=== PATIENT | male | born 1965 | race Hispanic/Latino ===

== ENCOUNTER 2017-01-26 13:40 | Emergency (ER) | payer OTHER ==
[~2017-01-26] VITALS: Ht 167.6 cm; Wt 73.0 kg
[~2017-01-26 13:40] MED LIST: TEKTURNA300 M1 PO
[2017-01-26 14:07] LABS: ABSOLUTE BASOPHIL COUNT 0 /CUMM (0.0-0.2); ABSOLUTE EOSINOPHIL COUNT 0.1 /CUMM (0.0-0.7); ABSOLUTE GRANULOCYTE CT 4.4 /CUMM (1.4-6.5); ABSOLUTE LYMPH COUNT 3.3 /CUMM (1.2-3.4); ABSOLUTE MONOCYTE COUNT 0.4 /CUMM (0.10-0.60); BASOPHIL % 0.5 % (0.0-2.0); EOSINOPHIL % 0.8 % (0-5); GRANULOCYTE % 53.5 % (42.2-75.2); HEMATOCRIT 47.1 % (42-52); MEAN CORPUSCULAR HGB 26.5 PG (27.0-31.0); MEAN CORPUSCULAR HGB CONC 32.5 G/DL (33.0-37.0); MEAN CORPUSCULAR VOLUME 81.6 FL (80.0-94.0); MEAN PLATELET VOLUME 8.4 FL (7.4-10.4); PLATELET COUNT 231 /CUMM (130-400); RBC DISTRIBUTION WIDTH 15.5 % (11.5-14.5); RED BLOOD CELL CT 5.77 /CUMM (4.70-6.10); WHITE BLOOD CELL COUNT 8.3 /CUMM (4.8-10.8)
[2017-01-26] MEDS ORDERED: FISH OIL 1,2001 EACH PO (15:34)
[2017-01-26] MEDS ORDERED: ADVIL200 M2 PO (15:35)
--- NOTE | 2017-01-26 16:19 | ED GENERAL ADULT ---
History of Present Illness General Chief Complaint: Chest Pain Stated Complaint: CP, SOB Source: patient Exam Limitations: no limitations Vital Signs & Intake/Output Vital Signs & Intake/Output Vital Signs Date Time Temp Pulse Resp B/P B/P Pulse O2 O2 Flow FiO2 Mean Ox Delivery Rate 01/26 1737 97.8 64 18 166/103 99 01/26 1545 98 Room Air 01/26 1533 74 18 187/103 97 01/26 1353 97.9 76 16 138/92 97 Room Air Allergies Coded Allergies: No Known Allergies (07/17/16) Reconcile Medications Aliskiren Hemifumarate (Tekturna) 300 MG TABLET 1 TAB PO DAILY HIGH BLOOD PRESSURE (Reported) Fish Oil/Dha/Epa (Fish Oil 1,200 MG Fish Oil) (Unknown Strength) CAPSULE ( Unknown Dose) PO DAILY SUPPLEMENT (Reported) Ibuprofen (Advil) 200 MG TABLET 2 TAB PO ONCE PAIN (Reported) Triage Note: PT STATES SOB AND CHEST PAIN UNDER LEFT BREAST SINCE TODAY. PT STATES HE WAS IN A MEETING AND FELT LIGHT HEADED AND DIZZY. PT STATES HE DOES HAVE HTN AND DOES TAKE MEDS FOR THIS. PT DENIES NAUSEA. Triage Nurses Notes Reviewed? yes HPI: 51-year-old male with a history of hypertension presenting with intermittent chest pain since yesterday. Reports intermittent episodes of sharp nonradiating left-sided chest pain that will last a few seconds and then self resolve. Reports that he has experienced this in the past but never sought medical attention. Today decided to seek medical attention as one episode was associated with some lightheadedness. Denies diaphoresis, nausea, vomiting, shortness of breath, dizziness, pain radiating to the arm/neck/jaw/back. (JIM CEDENO PA-C) Past History Travel History Traveled to [place] past 21 day No Medical History Any Pertinent Medical History? see below for history Cardiovascular: hypertension Surgical History Surgical History: none Psychosocial History What is your primary language Fijian Tobacco Use: Never used ETOH Use: occasional use Illicit Drug Use: denies illicit drug use Family History Hx Contributory? No (JIM CEDENO PA-C) Review of Systems Review of Systems Constitutional: Denies: chills, diaphoresis, fever, malaise, weakness. Respiratory: Denies: cough, hemoptysis, short of breath, sputum production, wheezing. Cardiovascular: Reports: chest pain. Denies: edema, palpitations, peripheral edema, syncope. GI: Denies: abdominal pain, nausea, vomiting. Musculoskeletal: Reports: no symptoms. Skin: Reports: no symptoms. Neurological/Psychological: Reports: other (light headedness). Denies: headache, numbness, paresthesia, tingling, tremors, weakness. (PAO MCLEOD,JIM) Physical Exam Physical Exam General Appearance: well developed/nourished, no apparent distress Head: atraumatic Respiratory: normal breath sounds, chest non-tender, lungs clear Cardiovascular: regular rate/rhythm, normal peripheral pulses Extremities: no edema Neurologic/Psych: no motor/sensory deficits, alert, oriented x 3 Skin: intact, normal color, warm/dry Core Measures ACS in differential dx? Yes CVA/TIA Diagnosis: No Severe Sepsis Present: No Septic Shock Present: No (PAO MCLEOD,JIM) Progress Differential Diagnoses I considered the following diagnoses in my evaluation of the patient: [VT versus angina versus prinzmetal versus pneumonia versus pleural effusion versus pleurisy versus muscle strain versus muscle spasm versus GERD] Plan of Care: Orders Procedure Date/time Status TROPONIN LEVEL 01/26 1700 Complete Add-on Test (ER Only) 01/26 1557 Active PHOSPHORUS 01/26 1401 Complete MAGNESIUM 01/26 1401 Complete TROPONIN LEVEL 01/26 1354 Complete COMPREHENSIVE METABOLIC PANEL 01/26 1354 Complete CBC WITHOUT DIFFERENTIAL 01/26 1354 Complete EKG 01/26 1342 Active Laboratory Tests 01/26/17 1722: Troponin I < 0.01 01/26/17 1401: Anion Gap 10, Estimated GFR > 60, BUN/Creatinine Ratio 20.0, Glucose 138 H, Calcium 8.8, Phosphorus 3.0, Magnesium 1.9, Total Bilirubin 0.4, AST 25, ALT 28, Alkaline Phosphatase 54, Troponin I < 0.01, Total Protein 7.1, Albumin 3.9, Globulin 3.2, Albumin/Globulin Ratio 1.2, CBC w Diff NO MAN DIFF REQ, RBC 5.77, MCV 81.6, MCH 26.5 L, RDW 15.5 H, MPV 8.4, Gran % 53.5, Lymphocytes % 40.1, Monocytes % 5.1, Eosinophils % 0.8, Basophils % 0.5, Absolute Granulocytes 4.4, Absolute Lymphocytes 3.3, Absolute Monocytes 0.4, Absolute Eosinophils 0.1, Absolute Basophils 0, PUBS MCHC 32.5 L EKG with normal sinus rhythm. Labs unremarkable including negative troponin 2. Chest x-ray unremarkable. Patient has remained asymptomatic throughout ED visit. Will follow up with primary care provider for reevaluation. (JIM CEDENO PA-C) Initial ED EKG: NSR, Rate 78 Sinus Rhythm Left axis deviation No ST segment of T wave changes (JIM CEDENO PA-C) Departure Departure Disposition: HOME OR SELF CARE Condition: Stable Clinical Impression Primary Impression: Chest pain Referrals: LI RIVERA MD (PCP/Family) Additional Instructions: Use ibuprofen as needed for pain. Follow-up with her primary care provider for reevaluation in one to 2 days. Return to the ED for any new or worsening symptoms. Departure Forms: Customer Survey General Discharge Information (JIM CEDENO PA-C) PA/SERVICE ENGINE REPAIRER Co-Sign Statement Statement: ED Attending supervision documentation- [] I saw and evaluated the patient. I have also reviewed all the pertinent lab results and diagnostic results. I agree with the findings and the plan of care as documented in the PA's/SERVICE ENGINE REPAIRER's documentation. [X] I have reviewed the ED Record and agree with the PA's/SERVICE ENGINE REPAIRER's documentation. [] Additions or exceptions (if any) to the PAs/SERVICE ENGINE REPAIRER's note and plan are summarized below: [] (MONCHO CRUZ DO) Critical Care Note Critical Care Note Critical Care Time: non-applicable (JIM CEDENO PA-C)
--- NOTE | 2017-01-26 16:42 | RADIOLOGY REPORT ---
EXAMINATION: XR CHEST CLINICAL INFORMATION: Intermittent left-sided chest pain. COMPARISON: Chest 07/17/2016. TECHNIQUE: 2 views of the chest were obtained. FINDINGS: Both lungs are fairly well-expanded and clear. The heart size and pulmonary vascularity is normal. No gross bony abnormality seen. IMPRESSION: Unremarkable chest exam.
[2017-01-26 17:37] VITALS: BP 166/103
== END 2017-01-26 18:37 ==
LOC: ERH 13:40
PROVIDERS: Emergency Medicine
DX: R07.9 Chest pain, unspecified (principal)
CPT/HCPCS: 93005; 93010

== ENCOUNTER 2017-02-21 02:21 | Emergency (ER) | payer OTHER ==
[~2017-02-21] VITALS: Ht 170.2 cm; Wt 72.6 kg
[~2017-02-21 02:21] MED LIST changes: +ADVIL200 M2 PO; +FISH OIL 1,2001 EACH PO
[2017-02-21 02:35] VITALS: BP 110/64
--- NOTE | 2017-02-21 02:48 | ED UPPER/LOWER EXTREMITY COMPL ---
History of Present Illness General Chief Complaint: General Adult Stated Complaint: "PER PT RT ARM BANDAGES NEEDS TO BE RE WRAPED" Source: patient Exam Limitations: no limitations Vital Signs & Intake/Output Vital Signs & Intake/Output Vital Signs Date Time Temp Pulse Resp B/P B/P Pulse O2 O2 Flow FiO2 Mean Ox Delivery Rate 02/21 0244 Room Air 02/21 0235 97.3 97 16 110/64 95 Room Air Allergies Coded Allergies: No Known Allergies (07/17/16) Reconcile Medications Aliskiren Hemifumarate (Tekturna) 300 MG TABLET 1 TAB PO DAILY HIGH BLOOD PRESSURE (Reported) Fish Oil/Dha/Epa (Fish Oil 1,200 MG Fish Oil) (Unknown Strength) CAPSULE ( Unknown Dose) PO DAILY SUPPLEMENT (Reported) Ibuprofen (Advil) 200 MG TABLET 2 TAB PO ONCE PAIN (Reported) Triage Note: 51yo MALE TO TRIAGE REQUESTING TO HAVE HIS "R ARM REDRESSED." STATES HE HAD TENDON REPAIR ON THURSDAY, TONITE WOUND "GOT ITCHY" SO PT REMOVED DRSG. SUTURE LINE INTACT W/STERISTRIPS COVERING. NO DRAINAGE OR REDNESS PRESENT. Triage Nurses Notes Reviewed? yes HPI: Patient presents for evaluation of itching in the area of tendon on Thursday. Patient states the arm felt very itchy so he removed the splint and dressing. He now wishes to have the splint replaced. Past History Travel History Traveled to [place] past 21 day No Medical History Any Pertinent Medical History? see below for history Cardiovascular: hypertension Surgical History Surgical History: none Psychosocial History What is your primary language Uzbek Tobacco Use: Never used Family History Hx Contributory? No Review of Systems Review of Systems Constitutional: Reports: no symptoms. EENTM: Reports: no symptoms. Respiratory: Reports: no symptoms. Cardiovascular: Reports: no symptoms. Gastrointestinal/Abdominal: Reports: no symptoms. Genitourinary: Reports: no symptoms. Musculoskeletal: Reports: see HPI. Skin: Reports: no symptoms. Neurological/Psychological: Reports: no symptoms. Hematologic/Endocrine: Reports: no symptoms. Immunological: Reports: no symptoms. All Other Systems: Reviewed and Negative Physical Exam Physical Exam General Appearance: see below Comments: Gen.: Well-nourished, well-developed, no acute respiratory distress. Head: Normocephalic, atraumatic. Eyes: Normal inspection bilaterally Ears: Normal inspection bilaterally Nose: Normal inspection, nasal cannula in place Throat/mouth : Moist mucosa Neck: Supple, full range of motion, no goiter Heart: Regular rate and rhythm Lungs: Quiet respirations Back: Normal range of motion Extremities: Right forearm: Healing surgical wound with no signs of infection. The right hand is neurovascularly intact. Neurologic: Cranial nerves grossly intact, speech is clear Skin: warm and dry Psychiatric: Calm, cooperative, no apparent delusions or hallucinations Progress Differential Diagnosis: circulatory compromise, compartment syndrome, postoperative infection Plan of Care: Continue current care Departure Departure Disposition: HOME OR SELF CARE Condition: Stable Clinical Impression Primary Impression: Postoperative pain of extremity Referrals: LI RIVERA MD (PCP/Family) Additional Instructions: Continue your current care and follow-up as previously discussed with your surgeon. Return if any concerns or sudden worsening. Thank you for choosing the [facility] Emergency Department for your care. It was a pleasure to serve you today. Johann Mccray M.D. [facility] Departure Forms: Customer Survey General Discharge Information
== END 2017-02-21 02:57 ==
LOC: ERH 02:21
DX: G89.18 Other acute postprocedural pain (principal)

== ENCOUNTER 2018-02-03 10:15 | Emergency (ER) | payer OTHER ==
[~2018-02-03 10:15] MED LIST changes: +HYDROCHLOROTHIA25 M1 PO
--- NOTE | 2018-02-03 10:35 | ED DYSPNEA/ASTHMA COMPLAINT ---
History of Present Illness General Chief Complaint: Dyspnea (COPD, CHF, Other) Stated Complaint: DYSPNEA Source: patient Exam Limitations: no limitations Vital Signs & Intake/Output Vital Signs & Intake/Output Vital Signs Date Time Temp Pulse Resp B/P B/P Pulse O2 O2 Flow FiO2 Mean Ox Delivery Rate 02/03 1651 98.2 80 16 130/71 96 Room Air 02/03 1532 97.7 63 18 128/64 95 Room Air 02/03 1144 97.7 72 20 143/72 98 02/03 1132 97 Room Air 02/03 1126 99 02/03 1023 74 24 98 Room Air Allergies Coded Allergies: No Known Allergies (07/17/16) Reconcile Medications Amlodipine Besylate 10 MG TABLET 1 TAB PO DAILY HEART (Reported) Triage Note: 52M TO ED WITH DIFF BREATHING SINCE LAST NIGHT, WORSENING. DENIES COUGH. LUNG SOUNDS CLEAR TO ALL FOSTER. O2 SAT 99% RA. DENIES ASSOCIATED CP/PALPITATIONS OR DIAPHORESIS. - SMOKER. -N/V. TO EKG ALCOVE ON ARRIVAL AND THEN TO XRAY Triage Nurses Notes Reviewed? yes Onset: Abrupt Duration: day(s): (1-2), constant, continues in ED, getting worse Timing: remote history Severity: mild, moderate Activities at Onset: none Prior Episodes/Possible Cause: occasional episodes Associated Symptoms: cough HPI: 52-year-old male history of hypertension presents for evaluation of headache and shortness of breath. Patient states that symptoms started this morning several hours prior to presentation. He reports a global headache described as pressure with associated blurred vision. He also reports shortness of breath that started this morning while he was at rest. Does not get worse on exertion no chest pain. He states he feels like he cannot get a full breath in. He states he did have similar symptoms about 7 months ago was evaluated here without a determined etiology. He denies any hemoptysis lower extremity edema fever neck pain nausea vomiting. He reports he has a history of similar headaches which usually takes Advil for but states this is different and more intense. He denies head trauma. States that it is a 7 out of 10. (Austen STEVEN,Jonatan) Past History Travel History Traveled to [place] past 21 day No Medical History Any Pertinent Medical History? see below for history Cardiovascular: hypertension Surgical History Surgical History: LEFT HAND SURGERY Psychosocial History What is your primary language Serbian Tobacco Use: Current Daily Use Daily Tobacco Use Amount/Type: => 5 Cigarettes daily Family History Hx Contributory? No (Jonatan Macario) Review of Systems Review of Systems Constitutional: Reports: no symptoms. EENTM: Reports: no symptoms. Respiratory: Reports: see HPI, short of breath. Cardiovascular: Reports: no symptoms. GI: Reports: no symptoms. Genitourinary: Reports: no symptoms. Musculoskeletal: Reports: no symptoms. Skin: Reports: no symptoms. Neurological/Psychological: Reports: see HPI, headache. Hematologic/Endocrine: Reports: no symptoms. Immunologic/Allergic: Reports: no symptoms. All Other Systems: Reviewed and Negative (Jonatan Macario) Physical Exam Physical Exam General Appearance: well developed/nourished, no apparent distress, alert, awake Head: atraumatic, normal appearance Eyes: Bilateral: normal appearance, PERRL, EOMI. Ears, Nose, Throat: normal pharynx, normal ENT inspection, hearing grossly normal Neck: normal inspection, supple, full range of motion Respiratory: chest non-tender, no respiratory distress, wheezing (MILD END EXPIRATORY) Cardiovascular: regular rate/rhythm, normal peripheral pulses Peripheral Pulses: 2+ radial (R), 2+ radial (L) Gastrointestinal: soft, non-tender Extremities: normal inspection, normal range of motion, no edema Neurologic/Psych: no motor/sensory deficits, awake, alert, oriented x 3, normal gait Skin: intact, normal color, warm/dry Core Measures ACS in differential dx? No CVA/TIA Diagnosis No Sepsis Present: No Sepsis Focused Exam Completed? No (Jonatan Macario) Progress Differential Diagnosis: asthma, AMI, bronchitis, CHF, COPD, pulmonary embolism, pneumonia, pneumothorax, rib fracture Plan of Care: Orders Procedure Date/time Status TROPONIN LEVEL 02/03 1445 Complete EKG 02/03 1445 Active TROPONIN LEVEL 02/03 1038 Complete MAGNESIUM 02/03 1038 Complete D-DIMER 02/03 1038 Complete COMPREHENSIVE METABOLIC PANEL 02/03 1038 Complete CBC WITHOUT DIFFERENTIAL 02/03 1038 Complete B-TYPE NATRIURETIC PEP (BNP) 02/03 1038 Complete EKG 02/03 1018 Active Laboratory Tests 02/03/18 1507: Troponin I < 0.01 02/03/18 1141: Anion Gap 10, Estimated GFR > 60, BUN/Creatinine Ratio 11.3, Glucose 105 H, Calcium 9.5, Magnesium 2.0, Total Bilirubin 0.7, AST 30, ALT 31, Alkaline Phosphatase 55, Troponin I < 0.01, [id number] Pept 61.2, Total Protein 7.8, Albumin 4.2, Globulin 3.6, Albumin/Globulin Ratio 1.2, D-Dimer High Sensitivty < 200, CBC w Diff NO MAN DIFF REQ, RBC 6.09, MCV 82.1, MCH 27.4, MCHC 33.4, RDW 15.5 H, MPV 8.5, Gran % 68.8, Lymphocytes % 25.0, Monocytes % 5.0, Eosinophils % 0.5, Basophils % 0.7, Absolute Granulocytes 6.2, Absolute Lymphocytes 2.3, Absolute Monocytes 0.4, Absolute Eosinophils 0, Absolute Basophils 0.1 Patient is here with shortness of breath and headache that started today. Labs EKG chest x-ray ordered and also CT scan of the brain patient signed out to Donnell Morrell pending evaluation. Initial ED EKG: normal sinus rhythm, LVH Prior EKG: unchanged Hand-Off Endorsed To: Donnell Schwartz Endorsed Time: 1114 Pending: CT, EKG, labs, other (Jonatan Macario) Repeat EKG: unchanged Comments: 02/03/2018 6:47:06 PM Upon reevaluating the patient clinically looks well. He is in no apparent distress. He is completely asymptomatic. Nontoxic appearing. no chest pain currently. No shortness of breath. Stable for discharge. Follow-up with primary care doctor. (Donnell Schwartz) Departure Departure Disposition: STILL A PATIENT Condition: Stable Clinical Impression Primary Impression: Headache Qualifiers: Headache type: unspecified Headache chronicity pattern: acute headache Intractability: not intractable Qualified Code: R51 - Headache Referrals: Patient Has No Primary Care Dr Departure Forms: Customer Survey General Discharge Information (Jonatan Macario) Departure Additional Instructions: Follow-up with your primary care doctor. Return if any concerns worsening symptoms. Please go over all results of today's visit with your primary care doctor. Contact your primary care doctor to let them know you were here in the emergency room. There may be nonspecific findings which may not be related to your visit today here in the emergency room but may require further evaluation and chronic monitoring by your primary care doctor. If you had a laceration today the chance of foreign body always remains. You should follow-up with your primary care doctor for recheck in 3-5 days for a wound check. If you had an x-ray done there is a chance that a fracture could have been missed on initial read and you should follow-up with your primary care doctor for repeat x-rays if symptoms persist. If your blood pressure was elevated here in the emergency room please have rechecked by hyour primary care doctor within the next 48. If you were prescribed a narcotic here in the emergency room or any type of controlled substances you're not allowed to drive while taking this medication or operate any type of heavy machinery. Narcotics can make you feel lightheaded dizziness nausea and can cause constipation. You may need to fiber picker a stool softener. Thank you for choosing [facility] emergency room. Please return to the emergency room immediately if you have any other concerns worsening of symptoms. (Donnell Schwartz) PA/HIDE CURER Co-Sign Statement Statement: ED Attending supervision documentation- [] I saw and evaluated the patient. I have also reviewed all the pertinent lab results and diagnostic results. I agree with the findings and the plan of care as documented in the PA's/HIDE CURER's documentation. [X] I have reviewed the ED Record and agree with the PA's/HIDE CURER's documentation. [] Additions or exceptions (if any) to the PAs/HIDE CURER's note and plan are summarized below: [] (Jerrod ZEPEDA,Johann Riojas) Critical Care Note Critical Care Note Critical Care Time: non-applicable (Jonatan Macario)
[2018-02-03] MEDS ORDERED: AMLODIPINE BESY10 M1 PO (10:39)
--- NOTE | 2018-02-03 11:12 | RADIOLOGY REPORT ---
EXAMINATION: XR CHEST CLINICAL INFORMATION: Difficulty breathing. COMPARISON: 01/26/2017 TECHNIQUE: 2 views of the chest were obtained. FINDINGS: The lungs are well-inflated and clear. Trachea is midline in position. No evidence of interstitial disease, focal consolidation, mass, pneumothorax or pleural effusion. The cardiomediastinal silhouette and pulmonary anel have normal size and contour. Bones are unremarkable. The examined upper abdomen is unremarkable. IMPRESSION: No acute cardiopulmonary findings.
[2018-02-03 11:51] LABS: ABSOLUTE BASOPHIL COUNT 0.1 /CUMM (0.0-0.2); ABSOLUTE EOSINOPHIL COUNT 0 /CUMM (0.0-0.7); ABSOLUTE GRANULOCYTE CT 6.2 /CUMM (1.4-6.5); ABSOLUTE LYMPH COUNT 2.3 /CUMM (1.2-3.4); ABSOLUTE MONOCYTE COUNT 0.4 /CUMM (0.10-0.60); BASOPHIL % 0.7 % (0.0-2.0); EOSINOPHIL % 0.5 % (0-5); GRANULOCYTE % 68.8 % (42.2-75.2); MEAN CORPUSCULAR HGB 27.4 PG (27.0-31.0); MEAN CORPUSCULAR HGB CONC 33.4 G/DL (33.0-37.0); MEAN CORPUSCULAR VOLUME 82.1 FL (80.0-94.0); MEAN PLATELET VOLUME 8.5 FL (7.4-10.4); PLATELET COUNT 246 /CUMM (130-400); RBC DISTRIBUTION WIDTH 15.5 % (11.5-14.5); RED BLOOD CELL CT 6.09 /CUMM (4.70-6.10)
--- NOTE | 2018-02-03 12:54 | CT SCAN REPORT ---
EXAMINATION: CT HEAD WITHOUT CONTRAST CLINICAL INFORMATION: Headache and blurred vision. COMPARISON: 06/17/2017 TECHNIQUE: Contiguous axial imaging was performed from the skull base to vertex without intravenous administration of contrast. DLP: 613 mGy-cm FINDINGS: Brain parenchyma: No acute findings. Calderon-white matter differentiation is well preserved. No evidence of an acute major vascular territory infarction, hemorrhage, mass or midline shift. Mild atherosclerotic calcification of cavernous carotid arteries. There are a few old small, subtle areas of decreased attenuation in supratentorial white matter, likely microvascular ischemic changes. Cerebrospinal fluid spaces: Normal. No hydrocephalus or extra-axial fluid collections. Cerebellum and brainstem: Normal. The 4th ventricle is midline in position. The cerebellopontine angles are normal. Calvarium and temporomandibular joints: Calvarium is intact. Mastoid air cells and middle ear cavities are well aerated. The TMJs are normal. Paranasal sinuses and orbits: The visualized paranasal sinuses are well-developed and well aerated. Orbits are unremarkable. Other: No acute findings in the visualized extracranial soft tissues. IMPRESSION: No acute intracranial pathology compared to 06/17/2017.
[2018-02-03 16:51] VITALS: BP 130/71
== END 2018-02-03 16:52 ==
LOC: ERH 10:15
PROVIDERS: Physician Assistant Medical
DX: R51 Headache (principal); R06.02 Shortness of breath
CPT/HCPCS: 1263; 71046; 93005; 93010